=== PATIENT | female | born 1955 | race Caucasian/White ===

== ENCOUNTER → 2021-03-29 14:37 | Outpatient (BNVA) | payer MEDICARE, MEDICAID, SELFPAY | PROVIDERS: Family Provider Physician Assistant Medical; Referring Provider Family Medicine; Visit Provider Otolaryngology | DX: Z20.822 Contact with and (suspected) exposure to COVID-19 (principal); C44.319 Basal cell carcinoma of skin of other parts of face | CPT/HCPCS: 87635 ==

== ENCOUNTER 2021-04-04 11:07 | Day surgery (SDC) | payer MEDICARE, MEDICAID, SELFPAY ==
[2021-04-03 08:41] VITALS: BMI 24.3
[2021-04-04 11:45] VITALS: BP 141/89; PULSE 70; RESP 16; TEMP 36.6; O2SAT 99
[2021-04-04] MEDS: sodium chloride 0.9% 1,000 ML 30 ML IV (12:35)
--- NOTE | 2021-04-04 14:09 | W.PM.OPSUD ---
Surgery/Procedure H&P Update DATE OF PROCEDURE: April 04, 2021 DATE H&P PERFORMED: 03/29/21 H&P UPDATE INFORMATION: I have reviewed H&P completed within last 30 days, I have examined patient prior to procedure and No changes to prior documentation PREOP DIAGNOSIS: Basal cell carcinoma left cheek PLANNED PROCEDURE: Operation Date: 04/04/21 13:45 Proposed Procedures p Excision of Basal Cell Carinoma 64016 C44.319(Not Applicable) - Earl Martinez MD
--- NOTE | 2021-04-04 14:26 | ANES.PREANE2 ---
Pre-Anesthetic Assessment Pre-Anesthetic Assessment: Height/Weight: Height 1.78 m Weight 77.111 kg Temp Pulse Resp BP Pulse Ox 97.8 F 70 16 141/89 99 04/04/21 11:45 04/04/21 11:45 04/04/21 11:45 04/04/21 11:45 04/04/21 11:45 Preop Diagnosis: Basal cell carcinoma left cheek Proposed Procedure: Operation Date: 04/04/21 13:45 Proposed Procedures p Excision of Basal Cell Carinoma 77880 C44.319(Not Applicable) - Earl Martinez MD Was Beta Velvet taken within 24 hours: N/A Was Clonidine taken within 24 hours: N/A Last intake: Intake Last Liquid Date 04/03/21 Last Liquid Time 22:00 Last Solid Date 04/03/21 Last Solid Time 21:00 Social: Social History: Tobacco and No alcohol Exam: Pre-Anes Outpt Exam: alert, oriented x 3 and regular rate & rhythm Airway: Submandibular: WNL Cervical ROM: WNL MP: 2 Dentition: False Pulmonary: Pulmonary: COPD CV/HEM: CV/HEM: HTN Neuropsych: Neuropsych: Anxiety and Depression Anesthetic Plan: ASA status: 3 Anesthesia: MAC Risk of > 500 ml blood loss (7ml/kg in children): No Meds/Allergies Current Medications: Current Medications Generic Name Dose Route Start Last Admin Trade Name Freq PRN Reason Stop Dose Admin Sodium Chloride 1,000 mls @ 30 ml s/hr 04/04/21 11:45 04/04/21 12:35 Sodium Chloride 0.9% IV 04/05/21 11:44 30 mls/hr .Q24H NATAN Administration PFSH Anesthesia PFSH: Social History Smoking and tobacco status: current every day smoker Alcohol intake: never Data Anesthesia Cardiac Studies: No Data to Display
[2021-04-04] MEDS: midazolam 1 mg/mL INJ 2 mL 2 MG IVP (14:33)
[2021-04-04] MEDS: neomycin-poly-bacitracin oint 28 gm 1 APPLIC TOPICAL (17:12)
[2021-04-04 17:40] VITALS: BP 136/78; PULSE 83; RESP 16; TEMP 36.3; O2SAT 99
--- NOTE | 2021-04-04 17:41 | P.OP_ITS ---
Operative Report Date of procedure: April 04, 2021 Pre-op Diagnosis: Basal cell carcinoma left cheek Post-op diagnosis: same Post-op Findings: Free margins on frozen section Procedure Done: Excision of left infraorbital cheek skin basal cell carcinoma with margins and intermediate multilayer closure. Specimens removed/disposition: Basal cell carcinoma with surrounding skin left infraorbital cheek region. Pathology: Specimen sent for frozen section Surgeon: Earl Martinez Anesthesia: General and Local Estimated blood loss (mL): 5 Complications: No complications encountered Findings: Raised to basal cell carcinoma left infraorbital cheek skin. The margins were clear on frozen section. Condition: stable Disposition: PACU Brief History: 65-year-old female patient with a 1 year history of a growing lesion in the left cheek infraorbital skin area. It has previously been biopsied and showed basal cell carcinoma with positive margins. She is being brought to the operating room to undergo excision and frozen section for margins before closure. The procedure risks and complications were explained in detail. Informed consent was granted and witnessed. She understands these risks to include bleeding infection scarring swelling bruising numbness recurrence need for additional treatment cosmetic change and more serious risks associated with anesthesia. Procedure: Description of procedure: The patient was placed on the operating table in the supine position. General LMA anesthesia was obtained. The patient was then positioned into a semirecumbent position. A timeout was accomplished identifying the patient date of plan procedure allergy fire risk and medications given. With all in agreement the procedure continued. The left cheek basal cell carcinoma was identified and cleansed with alcohol. A field block was accomplished utilizing a total of 3.4 mL of 2% Xylocaine with 1- 100,000 epinephrine. The patient was then prepped and draped in usual fashion. A fusiform excision pattern was laid out and created with a 15 blade carrying it down to the subcutaneous fat layer. In this layer the lesion was excised. I took a second margin inferiorly just to be sure that it was clear and this was about 1 to 2 mm of thickness. This was marked laterally with a silk suture. This was sent to the pathologist for frozen section margins. While that was pending hemostasis was attained with bipolar cautery. Undermining was done only inferiorly. Then since it was expected that the margins were going to be clear I started doing closure. A interrupted simple 4-0 chromic suture was placed to close the subcutaneous layer. The margins returned as clear and free of any malignancy. The skin was then closed with a running subcuticular 6-0 Prolene. Neosporin ointment was applied followed by a sterile Band-Aid. No active bleeding was encountered at this point. The patient tolerated the procedure well was returned to anesthesia for removal of the LMA and return to recovery. Patient did well and arrived in recovery in stable condition. Estimated blood loss was only 5 mL.
[2021-04-04 17:45] VITALS: BP 148/74; PULSE 77; RESP 16; O2SAT 95
[2021-04-04 17:50] VITALS: BP 160/68; PULSE 78; RESP 14; TEMP 36.5; O2SAT 96
[2021-04-04 17:54] VITALS: BP 134/68; PULSE 86; RESP 18; TEMP 36.4; O2SAT 98
--- NOTE | 2021-04-04 17:58 | ANE.PACU2 ---
Inpatient post-anesthesia follow up: Airway intact: Yes Vital signs: Temperature 97.7 F Pulse Rate 78 Respiratory Rate 14 Blood Pressure 160/68 Pulse Oximetry 96 Oxygen Delivery Me thod Room Air Oxygen Flow Rate 8 Fraction of Inspir ed Oxygen Hydration adequate: Yes Nausea and vomiting: No Pain level: 1 Mental status: Baseline
[2021-04-04 18:10] VITALS: BP 118/93; PULSE 94; O2SAT 96
== END 2021-04-04 18:20 | disposition home or self-care (01) ==
PROVIDERS: PCP Family Medicine; Visit Provider Otolaryngology
PROC: (CPT 11643; principal; 2021-04-04 13:45)
DX: C44.319 Basal cell carcinoma of skin of other parts of face (principal)
CPT/HCPCS: 11643; 12052; 88304; 88331; 96374; J0690; J2250; J3010; J7030

== ENCOUNTER → 2023-04-14 10:43 | Outpatient (BNVA) | payer MEDICARE, MEDICAID, SELFPAY | PROVIDERS: PCP Family Medicine; Referring Provider Family Medicine; Visit Provider Nurse Practitioner | DX: M17.11 Unilateral primary osteoarthritis, right knee; Z46.89 Encounter for fitting and adjustment of other specified devices; M25.561 Pain in right knee | CPT/HCPCS: 73560; 73565; 97760; 99204; L1851 ==

== ENCOUNTER 2023-04-14 12:17 | Outpatient (CLI) | payer MEDICARE, MEDICAID, SELFPAY | END 2023-04-14 12:18 | disposition home or self-care (01) | LOC: SPT 12:18 | PROVIDERS: PCP Family Medicine; Visit Provider Nurse Practitioner | DX: Z46.89 Encounter for fitting and adjustment of other specified devices (principal); M25.561 Pain in right knee | CPT/HCPCS: 97760; 99204; L1851 ==

== ENCOUNTER → 2023-05-28 09:33 | Outpatient (BNVA) | payer MEDICARE, MEDICAID, SELFPAY | PROVIDERS: PCP Family Medicine; Visit Provider Nurse Practitioner | DX: M17.11 Unilateral primary osteoarthritis, right knee | CPT/HCPCS: 20610; 99213; J1100; J2795; J3301 ==

== ENCOUNTER → 2023-10-17 10:36 | Outpatient (BNVA) | payer MEDICARE, MEDICAID, SELFPAY | PROVIDERS: PCP Family Medicine; Visit Provider Surgery | DX: K80.20 Calculus of gallbladder without cholecystitis without obstruction (principal) | CPT/HCPCS: 99204 ==

== ENCOUNTER 2023-11-04 05:47 | Day surgery (SDC) | payer MEDICARE, MEDICAID, SELFPAY ==
[2023-11-04] VITALS (12 sets, daily range): BP systolic 107–138; BP diastolic 53–78; PULSE 57–98; RESP 11–18; TEMP 36.1–36.4; O2SAT 92–100; BMI 25.8
--- NOTE | 2023-11-04 06:21 | W.PM.OPSUD ---
Surgery/Procedure H&P Update DATE OF PROCEDURE: November 04, 2023 DATE H&P PERFORMED: 10/17/23 H&P UPDATE INFORMATION: I have reviewed H&P completed within last 30 days, I have examined patient prior to procedure and No changes to prior documentation PLANNED PROCEDURE: Operation Date: 11/04/23 07:00 Proposed Procedures p Laparoscopic Cholecystectomy 98469, K80.20(Not Applicable) - Juanpablo Marcos,
[2023-11-04] MEDS: sodium chloride 0.9% 1,000 ML 30 ML IV (06:29)
--- NOTE | 2023-11-04 06:45 | ANES.PREANE2 ---
Pre-Anesthetic Assessment Height/Weight: Height 1.78 m Weight 81.647 kg Temp Pulse Resp BP Pulse Ox O2 Del Method 97.3 F L 63 18 138/77 98 Room Air 11/04/23 06:14 11/04/23 06:14 11/04/23 06:14 11/04/23 06:14 11/04/23 06:14 11/04/23 06:15 Operation Date: 11/04/23 07:00 Proposed Procedures p Laparoscopic Cholecystectomy 04008, K80.20(Not Applicable) - Juanpablo Marcos DO Familial anesthetic complications: None Was Beta Velvet taken within 24 hours: N/A Was Clonidine taken within 24 hours: N/A Last intake: Intake Last Liquid Date 11/03/23 Last Liquid Time 21:30 Last Solid Date 11/03/23 Last Solid Time 19:00 Social Tobacco and No alcohol Exam alert, oriented x 3, clear to auscultation bilaterally and regular rate & rhythm Airway Mallampati: Class III Dentition: false CV/HEM Hypertension GI Gastroesophageal Reflux Disease Anesthetic Plan ASA status: 3 Anesthesia: General Risk of > 500 ml blood loss (7ml/kg in children): No Medications/Allergies Home Medications Medication Instructions Recorded Confirmed Last Taken Type famotidine 20 mg tablet 20 mg PO DAILY 03/29/21 11/03/23 11/03/23 History lisinopril 40 mg tablet 40 mg PO DAILY 03/29/21 11/03/23 11/03/23 History acetaminophen 325 mg tablet 325 mg PO QID PRN Pain 04/03/21 11/03/23 04/03/21 History (Tylenol) multivitamin 1 tab PO DAILY 04/03/21 11/03/23 11/03/23 History medial general internal medicine doctor brace #1 ea 04/14/23 10/17/23 Unknown Rx diazepam 5 mg tablet 5 mg PO BID 11/03/23 11/03/23 11/03/23 History dicyclomine 10 mg capsule 10 mg PO TID 11/03/23 11/03/23 11/03/23 History escitalopram oxalate 20 mg tablet 20 mg PO DAILY 11/03/23 11/03/23 11/03/23 History (Lexapro) hydrochlorothiazide 12.5 mg capsule 12.5 mg PO DAILY 11/03/23 11/03/23 11/03/23 History loratadine 10 mg tablet 10 mg PO DAILY 11/03/23 11/03/23 11/03/23 History trazodone 50 mg tablet 50 mg PO BEDTIME 11/03/23 11/03/23 11/02/23 History Allergies Allergy/AdvReac Type Severity Reaction Status Date / Time bupropion [From Wellbutrin] Allergy Intermediate ADR-Anxiety Verified 11/03/23 11:12 doxycycline Allergy Intermediate ALGY-Rash Verified 11/03/23 11:12 reji gal Allergy Unknown Uncoded 11/04/23 06:10 Current Medications Generic Name Dose Route Start Last Admin Trade Name Freq PRN Reason Stop Dose Admin Sodium Chloride 1,000 mls @ 30 mls/hr 11/04/23 06:00 11/04/23 06:29 Sodium Chloride 0.9% IV 11/05/23 05:59 30 mls/hr .Q24H NATAN Administration PFSH Anesthesia Medical History Primary osteoarthritis of right knee Social History Alcohol intake: never Substance/Drug Use: never Data Anesthesia Cardiac Studies: No Data to Display
[2023-11-04] MEDS: ceFAZolin 2,000 MG in sodium chloride 0.9% (plus) 50 ML 100 MG IV (06:58)
[2023-11-04] MEDS: lidocaine-epi 2% PF 1:200,000 20 mL SDV XX (07:27)
--- NOTE | 2023-11-04 08:09 | P.OP_ITS ---
Operative Report Date of procedure: November 04, 2023 Surgeon: Juanpablo Marcos DO Brief History: This very pleasant 68-year-old female who presented my office with symptomatic cholelithiasis. Laparoscopic cholecystectomy was indicated. The risk and benefits were explained and documented. Procedure: Preoperative diagnosis: Symptomatic cholelithiasis Postoperative diagnosis: Same Procedure performed: Laparoscopic cholecystectomy Surgeon: Dr. Juanpablo Marcos DO Estimated blood loss: 5 mL findings: Intrahepatic gallbladder Specimens: Gallbladder to pathology Complications: None apparent Description of procedure: Patient was wheeled into the operative room and placed on the OR table in a supine position. Abdomen was inspected prepped and draped in usual sterile fashion. Time-out was performed and all present were in agreement. A 15 blade scalp was used to make a stab incision in the left upper quadrant and intra- abdominal insufflation was achieved using a Veress needle. After localizing the tissue incisions were made and a 5 millimeter trocar was placed into the umbilicus as well as 2 in the right upper quadrant. A 12 millimeter trocar was placed in the epigastrium. Gallbladder was grasped and elevated. Gallbladder was intrahepatic. The triangle of Calot was carefully dissected using blunt dissection and electrocautery until the triangle of Calot clearly identified. The cystic duct was clipped proximally and double clipped distally. The duct was then ligated proximally. The cystic artery was doubly clipped and ligated. The gallbladder was then removed from the liver bed using electrocautery. The gallbladder was removed from the abdomen using an Endo-Catch bag through the epigastric incision. The liver bed was inspected and no bleeding was seen. The abdomen was irrigated and suctioned. All ports removed. Skin was washed and dried. Incisions were closed with 4-0 Monocryl in a subcuticular interrupted fashion. Skin glue was applied. Patient tolerated the procedure well.
[2023-11-04] MEDS: fentaNYL 50 mcg/mL INJ 2mL IVP (08:26)
[2023-11-04] MEDS: ondansetron 2 mg/ML SDV 2 mL 4 MG IVP ×2 (08:30→10:32)
[2023-11-04] MEDS: meperidine 50 mg/mL INJ 12.5 MG IVP (09:00)
--- NOTE | 2023-11-04 09:02 | PC.NURSE ---
0902 - 12.5mg demerol given IVP in Phase 2 per this nurse
[2023-11-04] MEDS: TRAMadol 50 mg Tablet PO (10:10)
--- NOTE | 2023-11-04 10:15 | ANE.PACU2 ---
Inpatient post-anesthesia follow up: Airway intact: Yes Vital signs: Temperature 97.5 F Pulse Rate 98 Respiratory Rate 16 Blood Pressure 120/78 Pulse Oximetry 98 Oxygen Delivery Me thod Room Air Oxygen Flow Rate 8 Fraction of Inspir ed Oxygen Hydration adequate: Yes Nausea and vomiting: No Pain level: 1 Mental status: Baseline
== END 2023-11-04 10:15 | disposition home or self-care (01) ==
PROVIDERS: PCP Family Medicine; Visit Provider Surgery
PROC: 0FT44ZZ Resection of Gallbladder, Percutaneous Endoscopic Approach (ICD-10-PCS; CPT 47562; principal; 2023-11-04 07:00)
DX: K80.10 Calculus of gallbladder with chronic cholecystitis without obstruction (principal); I10 Essential (primary) hypertension; K21.9 Gastro-esophageal reflux disease without esophagitis; M17.11 Unilateral primary osteoarthritis, right knee
CPT/HCPCS: 47562; 88304; J0690; J1100; J1200; J2175; J2405; J2704; J2710; J3010; J3490; J7030

== ENCOUNTER → 2023-11-28 09:29 | Outpatient (BNVA) | payer MEDICARE, MEDICAID, SELFPAY | PROVIDERS: PCP Family Medicine; Visit Provider Surgery | DX: K59.00 Constipation, unspecified (principal); Z90.49 Acquired absence of other specified parts of digestive tract | CPT/HCPCS: 99214 ==